=== PATIENT | male | born 1965 | race Caucasian/White ===

== ENCOUNTER → 2017-06-05 | Outpatient (CLI) | payer SELFPAY ==
--- NOTE | 2017-06-07 09:29 | CT ---
HISTORY: Screening Study: Cardiac calcium score Comparison: None Technique: Noncontrast CT of the heart was performed utilizing prospective gating. AEC was utilized. Findings: Calcium score is 161 which places the patient between the 90 and 1 hundredth percentile for age and s ex. At least moderate atherosclerotic plaque is present with mild coronary artery disease highly like ly and significant narrowings possible. Surrounding soft tissues and osseous structures are unremarka ble. IMPRESSION: Moderate calcified atherosclerotic plaque. Reported By:
== END ==
LOC: RAD 10:26
PROVIDERS: ATTEND Internal Medicine Cardiovascular Disease
DX: Z13.6 Encounter for screening for cardiovascular disorders (principal)